=== PATIENT | female | born 1970 | race Caucasian/White ===

== ENCOUNTER → 2024-04-24 16:43 | Outpatient (REF) | payer OTHER, SELFPAY | LOC: WDC 16:43 | PROVIDERS: ATTENDING PHYSICIAN Obstetrics & Gynecology; FAMILY PHYSICIAN Physician Assistant Medical | DX: Z12.31 Encounter for screening mammogram for malignant neoplasm of breast (principal) | CPT/HCPCS: 77063; 77067 ==

== ENCOUNTER 2025-03-17 16:45 | Inpatient (IN) | payer OTHER, SELFPAY ==
[2025-03-17] VITALS (20 sets, daily range): BP systolic 83–137; BP diastolic 49–88; BMI 33.5; BMI 33.7
[2025-03-17 12:59] LABS: Hematocrit 40.5 % (37.0-47.0); Hemoglobin 13.7 g/dL (12.0-16.0); Mean Corp Hgb Conc. 33.8 g/dL (33.0-37.0); Mean Corpuscular Volume 89.6 fL (81.0-99.0); Nucleated Red Blood Cells % 0 %; Platelet Count 247 10^3/uL (130-400); Red Cell Dist. Width 13.1 % (11.5-14.5)
[2025-03-17 13:13] LABS: ALT (SGPT) 40 U/L (0-35); AST (SGOT) 28 U/L (14-36); Albumin 4.9 g/dl (3.5-5.0); Alkaline Phosphatase 57 U/L (38-126); Blood Urea Nitrogen 16 mg/dl (7-17); Calcium 10.3 mg/dl (8.4-10.2); Carbon Dioxide 24 mmol/L (22-30); Chloride 108 mmol/L (98-107); Estimated Creatinine Clearance > 125 ml/min; Glucose 107 mg/dl (70-99); Magnesium 2.0 mg/dl (1.6-2.3); Potassium 4.1 mmol/L (3.5-5.1); Sodium 141 mmol/L (135-145); Total Protein 7.8 g/dl (6.3-8.2); eGFR > 60.00
--- NOTE | 2025-03-17 13:17 | ED.GENMED ---
History of Present Illness
<Madison Arteaga BUSINESS INTEGRATION MANAGER - Last Filed: 03/17/25 20:07>
General
Chief Complaint: Heart Rate Problem
Source: patient
Exam Limitations: none
Time Seen by Provider: 03/17/25 13:17
Nursing documentation reviewed up to this point in time: agreed with
History of Present Illness
History of Present Illness:
54-year-old female with history of HTN, PCOS, anxiety, takes a GLP-1 for the last year and a half, presents for palpitations and chest tightness for about an hour and a half. She states she was sitting watching TV at 11:10 AM when all of a sudden
she felt palpitations and chest pressure. She denies weakness, dizziness or lightheadedness. Denies N/V. Patient took lorazepam 0.5 mg shortly after symptoms occurred as she thought she was having an anxiety attack
Past History
<Madison Arteaga, BUSINESS INTEGRATION MANAGER - Last Filed: 03/17/25 20:07>
Past History
ED Past Medical History: HTN, Psychiatric (Anxiety) and Other (PCOS)
ED Past Surgical History: None
Social History
Tobacco: Former smoker
Alcohol: Occasional
Personal:
Living: with family
Employment: Employed
Review of Systems
<Madison Arteaga, BUSINESS INTEGRATION MANAGER - Last Filed: 03/17/25 20:07>
Review of Systems
Allergies reviewed?: Yes
All Other Systems: ROS reviewed and negative except as documented in HPI and ROS
Phy Exam
<Madison Arteaga, BUSINESS INTEGRATION MANAGER - Last Filed: 03/17/25 20:07>
Physical Exam
Physical Exam:
GENERAL: No acute distress. A&Ox3.
CONSTITUTIONAL: Afebrile.
EYES: clear, conjunctivae normal
ENMT: moist mucus membranes, Pharynx nl
RESPIRATORY: Regular respirations, nonlabored, lungs clear.
CARDIOVASCULAR: Irregular rhythm, rate 109-140 on bedside monitor atrial fibrillation. no murmurs, no rubs.
GI: Soft, nontender, normal BS
MUSCULOSKELETAL: Moves with ease. Well perfused.
SKIN: Warm, dry, pink
PSYCH: Normal mood and affect. Well kept, interactive and appropriate
NEUROLOGIC: Awake, alert and oriented. No focal neurological deficits
Scores
<Madison Arteaga BUSINESS INTEGRATION MANAGER - Last Filed: 03/17/25 20:07>
[id number] Score for Afib Stroke Risk
Age in Years (65=0, 65-74=1, >/=75=2): <65
Sex (Female=+1): Female
Congestive Heart Failure History (Yes=+1): No
Hypertension History (Yes=+1): Yes
Stroke/TIA/Thromboembolism History (Yes=+2): No
Vascular Disease History (Yes=+1): No
Diabetes Mellitus (Yes=+1): No
Score: 2
Anticoagulation Recommendations: Recommend anticoagulation (as validated in nonvalvular fib)
<Elisa Espinoza DO - Last Filed: 03/17/25 15:08>
[id number] Score for Afib Stroke Risk
Score: 2
Anticoagulation Recommendations: Recommend anticoagulation (as validated in nonvalvular fib)
Course
<Madison Arteaga, BUSINESS INTEGRATION MANAGER - Last Filed: 03/17/25 20:07>
Orders/Labs/Results
Orders:
Orders
03/17/25 Breakfast
Regular
At Your Request: Full Participation
03/17/25 11:56
Electrocardiogram (*1) Urgent
Reason for Study: Chest Pain
EKG- Treatment ONCE
03/17/25 12:49
Complete Blood Count/With Diff Urgent
Comprehensive Metabolic Panel Urgent
Magnesium Urgent
Comment: ADD ON
TSH Reflex To Free T4 Urgent
Troponin I Urgent
03/17/25 14:13
Diltiazem 125 mg/125 ml Nss [Cardizem] 125 mg in 125 ml IV NOW
Initial dose in mg/hr, then titrate:: 5
Titrate to keep:: Heart rate 80-100 bpm
Titrate by mg/hr:: 5 mg/hr
Frequency of titrations (minutes):: 15
Maximum dose in mg/hr:: 15
Diltiazem HCl [Cardizem] 10 mg IV NOW STA
03/17/25 14:14
Diltiazem 125 mg/125 ml Nss [Cardizem] 125 mg in 125 ml .ROUTE .STK-MED
03/17/25 14:19
Apixaban [Eliquis] 5 mg PO NOW STA
03/17/25 14:49
0.9% Sodium Chloride 1000 ml [Nss] 1,000 ml IV BOLUS
03/17/25 16:19
Admit/Transfer Patient As Directed
Co-Sign Provider:
Level of Care: Inpatient admission
Assign to:: IVU
Physician / Group: Meir
Diagnosis: A-Fib
Reason for Hospitalization: Cardizem drip
Expected length of stay greater than two midnights?: Yes
ELOS- Estimated Length of Stay in days: 3
I certify the patient meets the requirements for IP care: Yes
03/17/25 16:20
PRN Pain Medication Management As Directed
May give lesser potent ordered pain med per pt: Yes
preference::
Protocol:: Medication orders for pain may be administered in a
manner that supports deferring to patient preference
when the pt is:
- Requesting an ordered lesser potent pain medication.
Least to most potent pain medications are defined
as: acetaminophen < NSAID < tramadol < opioids
(morphine, oxycodone, hydromorphone).
- Requesting a lesser dose of the same medication IF
ORDERED.
- Requesting a less intrusive route of administration
if both routes are prescribed by the provider (PO <
IV).
03/17/25 16:21
Code Status As Directed
Resuscitation Status: Full Code
03/17/25 17:40
Diltiazem 125 mg/125 ml Nss [Cardizem] 125 mg in 125 ml IV PER PROTOCOL
Currently infusing. Continue current dose and titrate:: Yes
Titrate to keep:: Heart rate 80-100 bpm
Titrate by mg/hr:: 2.5 mg/hr
Frequency of titrations (minutes):: 15
Maximum dose in mg/hr:: 15
03/17/25 18:21
Acetaminophen [Tylenol] 650 mg PO Q4HPRN PRN
03/17/25 18:21
Echo 2D MMode Color/Doppler Routine
Reason for Study: new a-fib
Cardiology Consult: Matthew Wilcox
CARDIOLOGY CONSULT Routine
Consulting Provider: Lionel Wilcox
Was physician already notified: Yes
Activity As Directed
Activity Level: Out of Bed-Early Mobility
With Assistance
Vital Signs As Directed
Frequency: Per unit guidelines
Cpap [RESP] Routine
Patient to use own unit?: Yes
03/17/25 20:00
Apixaban [Eliquis] 5 mg PO BID
03/18/25 06:00
Basic Metabolic Panel IN AM
Complete Blood Count/No Diff IN AM
Abnormal Lab Results
03/17/25
12:49
Chloride 108 H mmol/L
(98-107)
Glucose 107 H mg/dl
(70-99)
Calcium 10.3 H mg/dl
(8.4-10.2)
ALT 40 H U/L
(0-35)
03/17/25 12:49
03/17/25 12:49
Vital Signs
Initial and Last Documented VS:
Initial Vital Signs
Temp Pulse Resp BP Pulse Ox
97.7 F 110 16 137/87 100
03/17/25 11:58 03/17/25 11:58 03/17/25 11:58 03/17/25 11:58 03/17/25 11:58
Last Documented Vital Signs
Temp Pulse Resp BP Pulse Ox
98.5 F 97 16 107/53 96
03/17/25 20:04 03/17/25 18:25 03/17/25 20:04 03/17/25 18:25 03/17/25 20:04
Snuff Container Inspector consulted with Physician
Snuff Container Inspector consulted with physician?: Yes
Name of Physician Consulted: Olga
<Elisa Espinoza, DO - Last Filed: 03/17/25 15:08>
Orders/Labs/Results
Orders:
Orders
03/17/25 Breakfast
Regular
At Your Request: Full Participation
03/17/25 11:56
Electrocardiogram (*1) Urgent
Reason for Study: Chest Pain
EKG- Treatment ONCE
03/17/25 12:49
Complete Blood Count/With Diff Urgent
Comprehensive Metabolic Panel Urgent
Magnesium Urgent
Comment: ADD ON
TSH Reflex To Free T4 Urgent
Troponin I Urgent
03/17/25 14:13
Diltiazem 125 mg/125 ml Nss [Cardizem] 125 mg in 125 ml IV NOW
Initial dose in mg/hr, then titrate:: 5
Titrate to keep:: Heart rate 80-100 bpm
Titrate by mg/hr:: 5 mg/hr
Frequency of titrations (minutes):: 15
Maximum dose in mg/hr:: 15
Diltiazem HCl [Cardizem] 10 mg IV NOW STA
03/17/25 14:14
Diltiazem 125 mg/125 ml Nss [Cardizem] 125 mg in 125 ml .ROUTE .STK-MED
03/17/25 14:19
Apixaban [Eliquis] 5 mg PO NOW STA
03/17/25 14:49
0.9% Sodium Chloride 1000 ml [Nss] 1,000 ml IV BOLUS
03/17/25 16:19
Admit/Transfer Patient As Directed
Co-Sign Provider:
Level of Care: Inpatient admission
Assign to:: IVU
Physician / Group: Meir
Diagnosis: A-Fib
Reason for Hospitalization: Cardizem drip
Expected length of stay greater than two midnights?: Yes
ELOS- Estimated Length of Stay in days: 3
I certify the patient meets the requirements for IP care: Yes
03/17/25 16:20
PRN Pain Medication Management As Directed
May give lesser potent ordered pain med per pt: Yes
preference::
Protocol:: Medication orders for pain may be administered in a
manner that supports deferring to patient preference
when the pt is:
- Requesting an ordered lesser potent pain medication.
Least to most potent pain medications are defined
as: acetaminophen < NSAID < tramadol < opioids
(morphine, oxycodone, hydromorphone).
- Requesting a lesser dose of the same medication IF
ORDERED.
- Requesting a less intrusive route of administration
if both routes are prescribed by the provider (PO <
IV).
03/17/25 16:21
Code Status As Directed
Resuscitation Status: Full Code
03/17/25 17:40
Diltiazem 125 mg/125 ml Nss [Cardizem] 125 mg in 125 ml IV PER PROTOCOL
Currently infusing. Continue current dose and titrate:: Yes
Titrate to keep:: Heart rate 80-100 bpm
Titrate by mg/hr:: 2.5 mg/hr
Frequency of titrations (minutes):: 15
Maximum dose in mg/hr:: 15
03/17/25 18:21
Acetaminophen [Tylenol] 650 mg PO Q4HPRN PRN
03/17/25 18:21
Echo 2D MMode Color/Doppler Routine
Reason for Study: new a-fib
Cardiology Consult: Matthew Wilcox
CARDIOLOGY CONSULT Routine
Consulting Provider: Lionel Wilcox
Was physician already notified: Yes
Activity As Directed
Activity Level: Out of Bed-Early Mobility
With Assistance
Vital Signs As Directed
Frequency: Per unit guidelines
Cpap [RESP] Routine
Patient to use own unit?: Yes
03/17/25 20:00
Apixaban [Eliquis] 5 mg PO BID
03/18/25 06:00
Basic Metabolic Panel IN AM
Complete Blood Count/No Diff IN AM
Abnormal Lab Results
03/17/25
12:49
Chloride 108 H mmol/L
(98-107)
Glucose 107 H mg/dl
(70-99)
Calcium 10.3 H mg/dl
(8.4-10.2)
ALT 40 H U/L
(0-35)
03/17/25 12:49
03/17/25 12:49
Vital Signs
Initial and Last Documented VS:
Initial Vital Signs
Temp Pulse Resp BP Pulse Ox
97.7 F 110 16 137/87 100
03/17/25 11:58 03/17/25 11:58 03/17/25 11:58 03/17/25 11:58 03/17/25 11:58
Last Documented Vital Signs
Temp Pulse Resp BP Pulse Ox
98.5 F 97 16 107/53 96
03/17/25 20:04 03/17/25 18:25 03/17/25 20:04 03/17/25 18:25 03/17/25 20:04
<Madison Arteaga BUSINESS INTEGRATION MANAGER - Last Filed: 03/17/25 20:07>
MDM/Problems Addressed
MDM/Problems Addressed:
54-year-old female with history of HTN, PCOS, anxiety, takes a GLP-1 for the last year and a half, presents for palpitations and chest tightness for about an hour and a half. She states she was sitting watching TV at 11:10 AM when all of a sudden
she felt palpitations and chest pressure. She denies weakness, dizziness or lightheadedness. Denies N/V. Patient took lorazepam 0.5 mg shortly after symptoms occurred as she thought she was having an anxiety attack
1:45 PM:
EKG: A-fib with RVR heart rate 121 in triage, now on bedside monitor heart rate is 120s to 140, patient feels palpitations
Chads Vasc score 2 recommend anticoagulation
CBC, CMP unremarkable
TSH:WNL
Case discussed with Dr. Espinoza
Consulted Dr. Wilcox, Cardiology: Will attempt rate control w Cardizem drip, anticoagulation, consider DC on po Cardizem and anticoagulation vs admission
Pt agreeable to this plan.
4:00 PM:
Into reevaluate patient. She states she still feels the palpitations and is not comfortable going home
Plan: Admit to hospitalist
Hospitalist notified of admission
Chronic conditions affecting care: HTN
<Madison Arteaga BUSINESS INTEGRATION MANAGER - Last Filed: 03/17/25 20:07>
*Pulse Oximetry
SaO2: 99
Oxygen Mode of Delivery: Room air
Patient hypoxic: no
*Critical Care Note
Total Time (30-74mins, 75-104mins- exclusive of procedures): Not Applicable
ED Attending Note
<Madison Arteaga, BUSINESS INTEGRATION MANAGER - Last Filed: 03/17/25 20:07>
-
Portions of this chart may have been created with voice recognition software.� Occasional wrong word or��sound alike� substitutions may have occurred due to the inherent limitations of voice recognition software.
<Elisa Espinoza DO - Last Filed: 03/17/25 15:08>
ED Attending Note
Patient seen and examined by attending physician: Yes
I performed the substantive portion of visit, reviewed & personally made and approve the management plan that is documented in note by myself or ANTOINE.: Yes
I performed a history and physical exam of patient and discussed management with resident, I reviewed resident's note and agree with documented findings and plan of care.: Yes
ED Attending Note:
54-year-old female with history of hypertension presenting to the emergency department for palpitations and chest tightness which started prior to arrival. Patient notes that they started while she was watching TV. Denies ever having the symptoms
in the past. She took a lorazepam after symptom onset without any improvement of symptoms. Denies any known cardiac history. Denies any present chest pain. Denies any fever or recent illness. Vital signs on arrival significant for tachycardia.
On exam patient is resting comfortably, no acute distress. EKG obtained on arrival, consistent with A-fib with RVR, new onset with no prior history. Suspect etiology of patient's symptoms. Plan for laboratory analysis and Cardizem with plan for
discussion with cardiology regarding cardioversion versus medical management.
15:00 - In discussion with cardiology, option of both medical manage Cardizem and Eliquis given [id number] score versus cardioversion. Patient for medical therapy with continued Cardizem. If patient does not convert on Cardizem drip, continue
management monitoring
Discharge Plan
Departure
Patient Disposition: Admit
Date of Disposition: 03/17/25
Time of Disposition: 16:02
Admit to: Telemetry
Presentation/result/management discussed w/ accepting MD/DO: Hospitalist
Condition: Fair
Discharge Problem:
Atrial fibrillation, new onset, Atrial fibrillation with rapid ventricular response
Interventions
Interventions:
*Risk Screen - Suicide Last Done: 03/17/25 12:01
*General Assessment Last Done: 03/17/25 12:52
*Neglect/Abuse Screening Last Done: 03/17/25 12:01
*ED- Fall Risk Assessment Last Done: 03/17/25 12:52
*ED COVID-19 Vaccine History Last Done: 03/17/25 12:52
*Nursing Disposition Last Done: 03/17/25 18:28
ED- Cardiac Assessment Last Done: 03/17/25 12:54
ED- Pulmonary Assessment Last Done: 03/17/25 12:54
Discharge Date and Time
Discharge Date/Time: 03/17/25 18:29
[2025-03-17 13:50] LABS: Troponin I < 0.012 ng/ml
[2025-03-17] MEDS: NSS 1000 IV (14:00)
[2025-03-17] MEDS: CARDIZEM 125 IV (14:20)
[2025-03-17] MEDS: CARDIZEM 10 MG IV (14:20)
[2025-03-17] MEDS: ELIQUIS 5 MG PO ×2 (14:52→20:06)
--- NOTE | 2025-03-17 16:23 | HPS.HSE ---
Addendum entered and electronically signed by Sheron Worley MD 03/17/25 17:28:
This is an addendum to H&P written by Gillian Ku on 03/17/2025. �Patient seen and examined independently with PA.
54-year-old female past medical history of hypertension, polycystic ovarian syndrome, anxiety, obstructive sleep apnea, migraines, obesity, presenting with palpitations and chest pressure starting today. �Denies nausea or vomiting. �Denies
lightheadedness. �She took Ativan as she thought she was having an anxiety attack.
Vital signs show heart rate up to 132.
Labs unremarkable. �EKG shows atrial fibrillation with RVR.
Patient with new onset atrial fibrillation with RVR. �IV fluids given. �Cardizem drip started. �Eliquis started. �Check echo, TSH. �Cardiology consulted.
Original Note:
Family Physician
-
Family Physician: Linda Vee
Chief Complaint
-
Palpitations
History of Present Illness
Patient is a 54 y/o female past medical history of hypertension, anxiety, migraine headaches, PCOS, obstructive sleep apnea, and obestiy who presents with palpitations. Patient reports onset of symtpoms at 11:10 this morning. She describes heart
beating very quickly and felt like it was pounding in her chest. She reports some dizziness, but deneis chest pain. She denies lower extremitty edema. She denies similar episodes in the past.
Medical History
Past Medical History
Past Medical History: Reports Other
Additional Past Medical History:
Essential Hypertension
Migraine Headaches
Generalized Anxiety Disorder
PCOS
Obstructive Sleep Apnea
Obesity due to Excess Calories
Past Surgical History: Reports Other
Additional Past Surgical History:
Section
Carpal Tunnel
Social History
Tobacco: Former Smoker
Alcohol: Occasional (About 4 times per week)
Family History
Family History: Other (Denies family history of cardiac disease)
Allergies / Home Medications
Allergies reflects when Allergies were last updated in [employer].
Home Medications with original date entered in [employer]
Allergy/Medication List:
Allergies
Allergy/AdvReac Type Severity Reaction Status Date / Time
NKA - No Known Allergies Allergy Severe NKDA Uncoded 03/17/25 12:47
Home Medications
acebutolol 200 mg capsule 200 mg PO BID 03/17/25
cholecalciferol (vitamin D3) 25 mcg (1,000 unit) tablet 25 mcg PO DAILY 03/17/25
famotidine 20 mg tablet (Pepcid) 20 mg PO DAILYPRN PRN heartburn 03/17/25
magnesium carb,citrate,oxide (Magnesium Complex) 300 mg PO DAILY 03/17/25
omega 4-khw-tnp-fish oil 1,000 mg (120 mg-180 mg) capsule (Fish Oil) 1 cap PO DAILY 03/17/25
rizatriptan 10 mg tablet 10 mg PO DAILYPRN PRN migraine 03/17/25
therapeutic multivitamin 1 tab PO DAILY 03/17/25
vitamin B complex 1 tab PO DAILY 03/17/25
Review of Systems
-
A 12 point ROS was completed and negative except as noted: Yes
Constitutional: Denies Fever
Respiratory: Denies Trouble Breathing
Cardiac: Reports See HPI
Physical Exam
Vital Signs
Vital Signs
Temp Pulse Resp BP Pulse Ox
97.7 F 102 16 90/63 99
03/17/25 11:58 03/17/25 16:00 03/17/25 16:00 03/17/25 15:00 03/17/25 15:15
Physical Exam
General: Comfortable and Conversant
HEENT: Anicteric and Moist mucous membranes
Respiratory: Clear and Non Labored Respirations
Cardiac: S1/S2, Irregular Rhythm and Tachycardia
GI: Soft and Non Tender
Rectal: Deferred by Provider
Musculoskeletal: No Clubbing and No Cyanosis
Skin: Warm and Dry
Neuro: Awake, Alert, Oriented and Nonfocal/grossly intact
Psych: Calm
Laboratory Results
-
03/17/25 12:49
03/17/25 12:49
Laboratory Results
Total Bilirubin 0.6 mg/dl (0.2-1.3) 03/17/25 12:49
AST 28 U/L (14-36) 03/17/25 12:49
ALT 40 U/L (0-35) H 03/17/25 12:49
Alkaline Phosphatase 57 U/L (38-126) 03/17/25 12:49
Troponin I < 0.012 ng/ml 03/17/25 12:49
Data Reviewed
-
Lab Data: Labs Reviewed by me
Impression/Plan
-
New Onset Atrial Fibrillation with Rapid Ventricular Response
-Admit to IVU
-Consult Cardiology
-Continue Cardizem drip
-Continue Eliquis
-Check Echo
Essential Hypertension
-Continue acebutolol
Obstructive Sleep Apnea
-Continue CPAP - Patient's will bring from home
DVT proph: Eliquis
Code Status: Full Code
--- NOTE | 2025-03-17 17:24 | PTCARENOTE ---
Pt's BP 83/61 with HR in the 90's. Pt's Cardizem is currently at 10mg/hr. Per Hospitalist decrease Cardizem to 7.5mg/hr. RN encouraged po intake with fluids. Will update IVU and continue to monitor.
[2025-03-17] MEDS: TYLENOL 650 MG PO (23:01)
--- NOTE | 2025-03-17 23:45 | PTCARENOTE ---
Received pt at change of shift resting in bed. pt ambulating in room as katarina. A-fib on tele, HR 80's-90's. pt denies any CP or SOB. Cardizem gtt infusing @ 7.5 mg/hr. SBP 92. Anya Meier, CHIEF TELEPHONE OPERATOR made aware, instructed RN ok to decrease to as low as
2.5 if needed. Cardizem gtt decreased to 5mg/hr, SBP's 95-100's. A-fib education book given to pt. pt requesting PRN Tylenol for headache--see MAR. Encouraged pt to call RN with any questions/concerns. pt verbalizes understanding. Call layne within
reach.
[2025-03-18] VITALS (29 sets, daily range): BP systolic 81–135; BP diastolic 63–91
--- NOTE | 2025-03-18 01:00 | PTCARENOTE ---
BP 87/73, HR 80's-90's. Anya Meier NP made aware. Instructed RN to turn Cardizem infusion off and ordered NSS bolus. Administered per order. pt c/o migraine, PROJECT INSPECTOR ordered Rizatriptan, administered per pt request.
[2025-03-18] MEDS: NSS 250 IV (01:01)
[2025-03-18] MEDS: MAXALT MLT (ORALLY DISINTEGRATING) 10 MG PO (01:42)
[2025-03-18 03:09] LABS: Hematocrit 37.0 % (37.0-47.0); Hemoglobin 12.4 g/dL (12.0-16.0); Mean Corp Hgb Conc. 33.5 g/dL (33.0-37.0); Mean Corpuscular Volume 91.4 fL (81.0-99.0); Platelet Count 209 10^3/uL (130-400); Red Cell Dist. Width 13.3 % (11.5-14.5)
[2025-03-18 03:32] LABS: Blood Urea Nitrogen 14 mg/dl (7-17); Calcium 9.6 mg/dl (8.4-10.2); Carbon Dioxide 24 mmol/L (22-30); Chloride 111 mmol/L (98-107); Estimated Creatinine Clearance > 125 ml/min; Glucose 107 mg/dl (70-99); Potassium 4.2 mmol/L (3.5-5.1); Sodium 141 mmol/L (135-145); eGFR > 60.00
--- NOTE | 2025-03-18 04:09 | W.PN.UPDATE ---
Update Note
Progress Note Update
Pt arrived to IVU on Cardizem gtt. Since being on gtt pt bp steadily declining. Cardizem gtt placed on hold when sbp down to 88. Nss bolus ordered. [id number]
[2025-03-18] MEDS: NSS 1000 IV ×2 (05:47→16:58)
--- NOTE | 2025-03-18 07:39 | CON.CAR ---
Addendum entered and electronically signed by Vinny Wills MD 03/18/25 09:56:
I saw and examined the patient.
The IT PROGRAMMER ANALYST's note was reviewed and I agree with the note.
Comment:
54-year-old female with past medical history of hypertension, obesity, GIOVANNI on CPAP, and alcohol use who presents with new onset atrial fibrillation. She reports that she was sitting on her couch watching TV yesterday around 11 AM when she thought
she was having a panic attack. [place] her heart racing. Checked her Fitbit which showed a heart rate in the 150s and she presented to the ER. I personally reviewed ECG from the ER which showed A-fib with RVR. She was started on IV diltiazem and
heart rates have been ranging from the 100s up to 140s with minimal activity. Uptitration of diltiazem has been limited by hypotension.
Physical exam notable for fast and irregular rhythm, no murmurs, clear lungs, and no lower extremity edema
We will plan for synchronized cardioversion for her new onset atrial fibrillation. She is certain about the time of onset (11 AM yesterday), and since it has been less than 48 hours duration she does not need TRAVON prior. [id number] 2 (female,
hypertension). She will need apixaban 5 mg twice daily for at least 30 days following cardioversion. We discussed lifestyle modifications including alcohol cessation, weight loss, and CPAP compliance. She verbalized understanding. We will switch
her acebutolol to metoprolol. Follow-up echocardiogram. We will schedule her for follow-up in our office.
Original Note:
Consultation
Consultation Request
Date/Time Consultation Requested: 03/17/2025 18:20
Date/Time Consultation Performed: 03/18/2025 07:45
Requesting Provider: Gillian Bajwa PA-C
Performing Provider: KENNA Garrett for Dr. Wilcox
Reason for Consultation: Atrial fibrillaiton with RVR
Medical History
-
Chief Complaint: Palpitations
History of Present Illness:
Maribel Do is a 54-year-old female with hypertension, hypertriglyceridemia, NAFLD, PCOS, and GIOVANNI on CPAP who presented to the emergency department with a chief complaint of palpitations. There was a sudden onset at approximately 11:10 AM on
03/17/2025. Her heart felt like it was pounding quickly in her chest. She had some associated dizziness. She thought she was having a panic attack and took lorazepam without relief. She presented to the emergency department was found to have
atrial fibrillation with rapid ventricular response. She denies chest pain, nausea, and syncope/presyncope.
Past Medical History
Past Medical History: HTN and Other (Hypertriglyceridemia, NAFL, GIOVANNI on CPAP, PCOS)
Past Surgical History:
Social History
Tobacco: Non-Smoker
Alcohol: Occasional
Drug: None
Personal:
Living: With Family
Employment: Employed
Family History
Family History: Reviewed & Not Pertinent (Denies premature CAD and SCD.)
Allergies / Home Medications
Allergy/AdvReac Type Severity Reaction Status Date / Time
NKA - No Known Allergies Allergy Severe NKDA Uncoded 03/17/25 12:47
�Medication �Instructions �Recorded �Confirmed �Type
acebutolol 200 mg capsule 200 mg PO BID 03/17/25 03/17/25 History
cholecalciferol (vitamin D3) 25 25 mcg PO DAILY 03/17/25 03/17/25 History
mcg (1,000 unit) tablet
famotidine 20 mg tablet (Pepcid) 20 mg PO DAILYPRN PRN heartburn 03/17/25 03/17/25 History
magnesium carb,citrate,oxide 300 mg PO DAILY 03/17/25 03/17/25 History
(Magnesium Complex)
omega 5-dvu-oev-fish oil 1,000 mg 1 cap PO DAILY 03/17/25 03/17/25 History
(120 mg-180 mg) capsule (Fish Oil)
rizatriptan 10 mg tablet 10 mg PO DAILYPRN PRN migraine 03/17/25 03/17/25 History
therapeutic multivitamin 1 tab PO DAILY 03/17/25 03/17/25 History
vitamin B complex 1 tab PO DAILY 03/17/25 03/17/25 History
Review of Systems
-
History Source: Patient
All other systems: Negative unless noted
Constitutional: Fatigue
EENT: No Symptoms
Respiratory: No Symptoms
Cardiac: Palpitations
Abdomen/GI: No Symptoms
: No Symptoms
Musculoskeletal: No Symptoms
Skin: No Symptoms
Neurological: No Symptoms
Endocrine: No Symptoms
Hematologic/Lymphatic: No Symptoms
Physical Exam
Vital Signs
Temp Pulse Resp BP Pulse Ox
97.8 F 124 16 106/76 96
03/18/25 02:30 03/18/25 07:00 03/18/25 02:30 03/18/25 07:00 03/18/25 02:30
Lab Results
03/18/25 02:40
03/18/25 02:40
Troponin I < 0.012 ng/ml 03/17/25 12:49
Physical Exam
General: Well Developed, Well Nourished, No Apparent Distress and Comfortable
HEENT: Normocephalic, Anicteric and Moist Mucous Membranes
Respiratory: Clear and Non Labored Respirations
Cardiac: S1/S2 and Irregular Rhythm; Negative Peripheral Edema
Breast: Deferred by me
GI: Soft, Non Tender, Non Distended and Normal Bowel Sounds
Rectal: Deferred by Provider
Genito-urinary: No Costovertebral Tender
Musculoskeletal: No Clubbing and No Cyanosis
Skin: Warm and Dry
Neuro: AO x 3
Hematologic/Lymphatic: No Lymphadenopathy
Psych: Calm
Impression / Plan
-
I/P: 54F with hypertension, hypertriglyceridemia, NAFLD, PCOS, and GIOVANNI on CPAP who presented to the emergency department with a chief complaint of palpitations.
Radio Frequency Engineer: None prior to arrival
Atrial fibrillation with fast ventricular response
- Sudden onset at 11:10 AM yesterday
- BP did not tolerate diltiazem drip, plan for DCCV today
- Oral Anticoagulation: Started on apixaban 5 mg twice daily, the plan is for uninterrupted anticoagulation for 4 weeks post cardioversion
- [id number]: Score 2 (HTN, female gender)
HTN
-Has been maintained on acebutolol for ~25 years, BP soft with it on hold
Obesity, BMI 33, on GLP1, last dose 03/14/2025
GIOVANNI, on CPAP
Data Reviewed
-
EKG: Report Reviewed by me (Atrial fibrillation with RVR, iRBBB, rate 121)
Labs: Labs Reviewed by me
Old Records: Reviewed
--- NOTE | 2025-03-18 08:25 | W.PN.HOSP.TC ---
Today's Communication/Plan
-
Discharge today
Assessment / Plan
Assessment / Plan
Physical Exam
General: Comfortable and Conversant
HEENT: Anicteric and Moist mucous membranes
Respiratory: Clear to Auscultation Bilaterally
Cardiac: S1/S2, Irregular Rhythm and Tachycardia
GI: Soft and Non Tender. Positive bowel sounds.
Musculoskeletal: No Cyanosis. No edema.
Skin: Warm and Dry
Neuro: Awake, Alert, Oriented and Nonfocal/grossly intact
Psych: Calm
Assessment/Plan
54-year-old female with past medical history of hypertension, polycystic ovarian syndrome, anxiety, obstructive sleep apnea, migraines and obesity, presented with palpitations and chest pressure starting on 03/17/25 morning. She denied nausea,
vomiting or lightheadedness. She took Ativan as she thought she was having an anxiety attack. Vital signs showed heart rate up to 132 bpm. Labs were unremarkable. EKG showed atrial fibrillation with RVR. Patient with new onset atrial fibrillation
with RVR. IV fluids given. Cardizem drip started. Eliquis started.
New Onset Atrial Fibrillation with Rapid Ventricular Response
-Patient went for cardioversion, but spontaneously converted to Normal Sinus Rhythm as per my discussion with Dr. Wills, cardiology -- no cardioversion needed
-Uptitration of Diltiazem was limited by hypotension
-Cardiology consultation appreciated
-STOP home Acebutolol, and start Toprol XL 25 mg BID (I confirmed this with Dr. Wills)
-Continue Eliquis
Essential Hypertension
-STOP Acebutolol and START Toprol XL
Obstructive Sleep Apnea
-Continue CPAP
Polycystic ovarian syndrome
Anxiety
Migraines
Obesity
DVT Prophylaxis: Eliquis
Code Status: Full Code
More than 30 minutes spent in discharge including
Final examination of the patient
Summarizing hospital stay
Instructions for continuing care to all relevant caregivers
Preparation of discharge records, prescriptions, and referral forms
Total time spent (in minutes): 43
Anticipated Discharge: Today
Subjective/Interval History
-
Date of Service: March 18, 2025
Patient was seen and examined. She denied any chest pain or shortness of breath.
Objective Data
-
Labs:
Laboratory Results
03/18/25
02:40
WBC 7.8
Hgb 12.4
Hct 37.0
Plt Count 209
Sodium 141
Potassium 4.2
Chloride 111 H
Carbon Dioxide 24
BUN 14
Creatinine 0.6
Glucose 107 H
Calcium 9.6
Vital Signs:
Vital Signs
Temp Pulse Resp BP Pulse Ox
97.8 F 124 16 106/76 96
03/18/25 02:30 03/18/25 07:00 03/18/25 02:30 03/18/25 07:00 03/18/25 02:30
I&O
03/17/25 03/18/25 03/19/25
06:59 06:59 06:59
Intake Total 745 / 745
Balance 745 / 745
[2025-03-18] MEDS: ELIQUIS 5 MG PO ×2 (08:29→19:35)
--- NOTE | 2025-03-18 09:35 | PTCARENOTE ---
Patient resting in bed this morning, remains in AF with rates in the 120's at rest, does feel palpitations. Patient seen by cardiology and plan is for CV today, given AM dose of eliquis.
--- NOTE | 2025-03-18 09:42 | CM ---
Reviewed chart. Met with and Mrs. Do to review discharge plans. She states prior to admission she resides with her spouse and son in a two story home with three steps to enter. She states she has a first floor set-up. She states she has to
go down a full flight of steps to get to laundry room in the basement. She states prior to admission she was independent with ambulation and adls. She states she has a CPAP Machine at home and no other DME in the home. She state she has a
prescription plan and uses [facility]. Telephone call to [facility] to check on co-pay for Eliquis 5 mg po bid. Her co-pay would be $20.00 a month. She has commercial insurance so she can use the $10.00 co-pay coupon. Placed the one month free
coupon and the $10.00 co-pay coupon in her red discharge folder. She is agreeable to the co-pay. Medical work-up in progress. The discharge plan is to return home with her spouse and son when medically stable.
[2025-03-18 10:20] LABS: Glycohemoglobin (HgbA1c) 5.3 % (4.0-5.6)
--- NOTE | 2025-03-18 10:56 | PTCARENOTE ---
Report given to the recyclable materials sorter, patient for CV, waiting in the room.
--- NOTE | 2025-03-18 12:39 | PTCARENOTE ---
Patient returned from the trestle mainternance laborer, spontaneously cardioverted upon arrival in the EP lab before initiating any procedure. Returned to her room, ST on the the monitor, patient feels much better.
[2025-03-18] MEDS: TOPROL XL 25 MG PO (14:04)
--- NOTE | 2025-03-18 16:16 | W.PN.UPDATE ---
Addendum entered and electronically signed by Anselmo Ibanez MD 03/18/25 16:27:
I discussed with Dr. Wills, and I agreed with her that patient's symptoms below could be due to newly started Toprol XL. Much less likely to be an adverse effect of Eliquis. Will stop Toprol XL. Dr. Wills will put in Diltiazem.
Original Note:
Update Note
Progress Note Update
Patient's nurse notified me that patient has a temperature of 100.3 F and has the chills and appears flushed. She reported feeling tired and 'lousy.' Vital signs okay except for low grade fever and mild tachycardia. She denied any cough, SOB,
dysuria, urinary frequency, any joint pains or joint swelling, next stiffness, new skin rash, or any other symptoms.
Will check COVID and Flu.
Beta ana side effect? Will check with cardiology.
I spoke to patient and she us agreeable to being monitored here overnight, given the above.
[2025-03-18] MEDS: BENADRYL 25 MG IV (16:59)
[2025-03-18 17:05] LABS: COVID-19 Antigen Negative (Negative)
--- NOTE | 2025-03-18 18:31 | PTCARENOTE ---
After the patient's return from attempted CV the patient was asked to walk around and make sure she felt alright. Her only complaint at the time was feeling tired and that she was chilly but she was afebrile, received PO toprol xl as ordered. After
discharge written, found patient in bed in her room very flushed with the chills and stated she just felt 'tired and achy', was at the bedside. Lungs clear, denies any urinary issues. Dr. Vora notified, flu and covid swabs sent and
patient given IV benadryl and IVF restarted. Discharge cancelled.
[2025-03-18] MEDS: TYLENOL 650 MG PO (19:35)
[2025-03-18] MEDS: CARDIZEM CD 120 MG PO (22:47)
[2025-03-18 22:59] LABS: Hematocrit 36.7 % (37.0-47.0); Hemoglobin 12.4 g/dL (12.0-16.0); Mean Corp Hgb Conc. 33.8 g/dL (33.0-37.0); Mean Corpuscular Volume 90.0 fL (81.0-99.0); Nucleated Red Blood Cells % 0 %; Platelet Count 221 10^3/uL (130-400); Red Cell Dist. Width 13.3 % (11.5-14.5)
[2025-03-18 23:08] LABS: APTT 29.8 Sec (23.4-35.0)
[2025-03-18 23:13] LABS: Blood Urea Nitrogen 12 mg/dl (7-17); Calcium 9.2 mg/dl (8.4-10.2); Carbon Dioxide 20 mmol/L (22-30); Chloride 110 mmol/L (98-107); Estimated Creatinine Clearance 99 ml/min; Glucose 115 mg/dl (70-99); Potassium 4.0 mmol/L (3.5-5.1); Sodium 136 mmol/L (135-145); eGFR > 60.00
[2025-03-18 23:29] LABS: Procalcitonin < 0.05 ng/ml (0.0-0.25)
--- NOTE | 2025-03-18 23:35 | PTCARENOTE ---
Received patient at change of shift. ST on the monitor, HR in the 100s. NSS running as per order, see documentation. Oral temp of 101.9F, patient reports being 'freezing cold', PRN Tylenol administered as per order, see AUG. Temp now 100.5F, pt
reports feeling slightly better at this time. Pt with 3/10 headache, no other symptoms. Blood cultures obtained. Call layne within reach.
[2025-03-19] MEDS: TYLENOL 650 MG PO (00:03)
[2025-03-19 00:26] LABS: Urine Character Clear (Clear)
[2025-03-19 00:33] LABS: Urine Red Blood Cell 0-2 /HPF (0-2); Urine Squamous Cell 0-2 /LPF (Few); Urine White Cell 0-2 /HPF (0-5)
--- NOTE | 2025-03-19 00:45 | W.PN.UPDATE ---
Update Note
Progress Note Update
2129 Received an update on pt from attending Dr Ibanez regarding pt spiking temps. Earlier today it was 100.3 and discharge was cancelled. Now temp 101.3
Attending ordered blood culture x2. Unclear at the moment what is causing temps. Recommends cultures check ct chest for PE, US BLE for poss DVT and starting empiric abx.
Flu and covid negative
Discussed plans above with pt and she is in agreement. Denies respiratory symptoms (no cough/sob), denies urninary complaints. Denies abd complaints. Just feels very achy.
0000 CT chest without PE. US BLE negative DVT, normal wbc, procal negative, UA negative. Will start empiric abx overnight but likely will be stopped in am.
[2025-03-19] MEDS: ZOSYN 50 IV ×2 (02:41→08:35)
[2025-03-19 02:45] VITALS: BP 103/66
[2025-03-19 03:31] LABS: Hematocrit 36.7 % (37.0-47.0); Hemoglobin 12.1 g/dL (12.0-16.0); Mean Corp Hgb Conc. 33.0 g/dL (33.0-37.0); Mean Corpuscular Volume 91.5 fL (81.0-99.0); Nucleated Red Blood Cells % 0 %; Platelet Count 215 10^3/uL (130-400); Red Cell Dist. Width 13.2 % (11.5-14.5)
[2025-03-19 03:52] LABS: ALT (SGPT) 30 U/L (0-35); AST (SGOT) 20 U/L (14-36); Albumin 3.9 g/dl (3.5-5.0); Alkaline Phosphatase 43 U/L (38-126); Blood Urea Nitrogen 12 mg/dl (7-17); Calcium 9.1 mg/dl (8.4-10.2); Carbon Dioxide 20 mmol/L (22-30); Chloride 112 mmol/L (98-107); Estimated Creatinine Clearance 113 ml/min; Glucose 97 mg/dl (70-99); Magnesium 2.1 mg/dl (1.6-2.3); Potassium 3.9 mmol/L (3.5-5.1); Sodium 139 mmol/L (135-145); Total Protein 6.3 g/dl (6.3-8.2); eGFR > 60.00
[2025-03-19] MEDS: NSS 1000 IV (05:34)
[2025-03-19 07:15] VITALS: BP 104/74
[2025-03-19] MEDS: MAXALT MLT (ORALLY DISINTEGRATING) 10 MG PO (08:28)
[2025-03-19] MEDS: ELIQUIS 5 MG PO (08:28)
--- NOTE | 2025-03-19 09:03 | PTCARENOTE ---
Patient feels much better this morning, afebrile. Only complaint is of a headache and she requested her maxalt which was given. at the bedside, asking when she could get discharged. Informed that an ID consult has been ordered, the patient
did recall this being mentioned.
[2025-03-19] MEDS: LR 1000 IV (09:12)
--- NOTE | 2025-03-19 10:13 | W.PN.HOSP.TC ---
Today's Communication/Plan
-
Discharge today
Assessment / Plan
Assessment / Plan
Physical Exam
General: Comfortable and Conversant
HEENT: Anicteric and Moist mucous membranes
Respiratory: Clear to Auscultation Bilaterally
Cardiac: S1/S2, Irregular Rhythm and Tachycardia
GI: Soft and Non Tender. Positive bowel sounds.
Musculoskeletal: No Cyanosis. No edema.
Skin: Warm and Dry
Neuro: Awake, Alert, Oriented and Nonfocal/grossly intact
Psych: Calm
Assessment/Plan
54-year-old female with past medical history of hypertension, polycystic ovarian syndrome, anxiety, obstructive sleep apnea, migraines and obesity, presented with palpitations and chest pressure starting on 03/17/25 morning. She denied nausea,
vomiting or lightheadedness. She took Ativan as she thought she was having an anxiety attack. Vital signs showed heart rate up to 132 bpm. Labs were unremarkable. EKG showed atrial fibrillation with RVR. Patient with new onset atrial fibrillation
with RVR. IV fluids given. Cardizem drip started. Eliquis started.
New Onset Atrial Fibrillation with Rapid Ventricular Response
-Patient went for cardioversion, but spontaneously converted to Normal Sinus Rhythm as per my discussion with Dr. Wills, cardiology -- no cardioversion needed
-Uptitration of Diltiazem was limited by hypotension
-Cardiology consultation appreciated
-STOP home Acebutolol, and start new Diltiazem extended release. Suspected patient did not tolerate Toprol XL 25 mg with flushing reaction
-Continue Eliquis for 30 days, and then stop (needs uninterrupted anticoagulation for 4 weeks)
-Follow up with driftman Dr. Brannon in the outpatient cardiology office in one month.
-Weight loss, reduce alcohol intake, sleep apnea treatment, exercise
Fevers 03/18/25
-Unknown etiology, no source of infection
-Was given a short course of Zosyn, ID recommended stopping antibiotics and observe
-No PE or DVT
Essential Hypertension
-STOP Acebutolol and START Toprol XL
Obstructive Sleep Apnea
-Continue CPAP
Polycystic ovarian syndrome
Anxiety
Migraines
Obesity
DVT Prophylaxis: Eliquis
Code Status: Full Code
More than 30 minutes spent in discharge including
Final examination of the patient
Summarizing hospital stay
Instructions for continuing care to all relevant caregivers
Preparation of discharge records, prescriptions, and referral forms
Total time spent (in minutes): 43
Anticipated Discharge: Today
Subjective/Interval History
-
Date of Service: March 19, 2025
Patient was seen and examined. She reported feeling better today, no more fevers. She would like to go home today.
Objective Data
-
Labs:
Laboratory Results
03/18/25 03/19/25
22:46 02:51
WBC 6.6 6.2
Hgb 12.4 12.1
Hct 36.7 L 36.7 L
Plt Count 221 215
APTT 29.8
Sodium 136 139
Potassium 4.0 3.9
Chloride 110 H 112 H
Carbon Dioxide 20 L 20 L
BUN 12 12
Creatinine 0.8 0.7
Glucose 115 H 97
Calcium 9.2 9.1
Total Bilirubin 0.5
AST 20
ALT 30
Alkaline Phosphatase 43
Vital Signs:
Vital Signs
Temp Pulse Resp BP Pulse Ox
98.5 F 97 18 104/74 98
03/19/25 07:13 03/19/25 07:45 03/19/25 07:13 03/19/25 07:15 03/19/25 07:13
I&O
03/18/25 03/19/25 03/20/25
06:59 06:59 06:59
Intake Total 745 / 745 1220 / 1220
Output Total 700 / 700
Balance 745 / 742 1220 / 5410 -700 /
--- NOTE | 2025-03-19 10:51 | W.PN.CD ---
Today's Communication / Plan
-
OK for home on Eliquis for 30 days then stop (Dr. Brannon's plan that I agree with, I reviewed option for usp Eliquis as well)
Home on New DILT ER, adjusted over time for good BP control <130/<80
Will stay off acebutolol
Not sure fever was reaction to metoprolol but reasonable to avoid for now
She will work hard on AFib risk factor medication: for her MUCH LESS ETOH and much more EXERCISE. Sleep apnea under control. She has lost 30 pounds but will redouble efforts
If AFib proves probalematic she will strongly consider ablation
55 min spent caring for patient today. More than 50% of that was educating pt and about AFib and treatment plans and goals.
Impression / Plan
-
Background: 54F with hypertension, hypertriglyceridemia, NAFLD, PCOS, and GIOVANNI on CPAP who presented to the emergency department with a chief complaint of palpitations.
Cabana Attendant: None prior to arrival
New/first PAF with RVR
- I reviewed how AFib is a recurrent arrhythmia in most cases. I reviewed all aspects of AFib
- Broke to sinus yesterday
- Off BB and now on Dilt ER
- Oral Anticoagulation: Started on apixaban 5 mg twice daily, the plan is for uninterrupted anticoagulation for 4 weeks
- [id number]: Score 2 (HTN, female gender)
ETOH, heavy but not excessive, I reviewed ETOH guidelines for AFib
Sedentary: She will work on increased exercise
HTN
- Will move from acebutolol to dilt
Obesity, BMI 33, on GLP1, last dose 03/14/2025
GIOVANNI, on CPAP
Low grade fever, unknown etiology, ID to see
Subjective: No more AFIb
Echo and sinus EKG are both NORMAL.. TSH normal
Physical Exam
Vital Signs/Labs
Vital Signs
Temp Pulse Resp BP Pulse Ox
98.5 F 97 18 104/74 98
03/19/25 07:13 03/19/25 07:45 03/19/25 07:13 03/19/25 07:15 03/19/25 07:13
03/18/25 03/19/25 03/20/25
06:59 06:59 06:59
Actual Weight 100.5 kg
03/19/25 02:51
03/19/25 02:51
APTT 29.8 Sec (23.4-35.0) 03/18/25 22:46
Magnesium 2.1 mg/dl (1.6-2.3) 03/19/25 02:51
LAB Results
03/17/25
12:49
Troponin I < 0.012
Physical Exam
Constitutional: No acute distress
EENT: Anicteric
Cardiovascular: Rhythm & rate is regular and Pedal edema is absent
Respiratory: Respiratory effort normal and Lungs clear to auscul.
GI: Soft and Distention absent
Neuro/Psych: AO x 3
Data Reviewed
-
Date of Service: March 19, 2025
--- NOTE | 2025-03-19 12:09 | CON.ID ---
Consultation
-
Date/Time Consultation Requested: March 19, 2025 0811
Date/Time Consultation Performed: March 19, 2025 1210
Requesting Provider: Dr. Anselmo Ibanez
Performing Provider: Dr. Melina Joaquin
Reason for Consultation: Fever
Chief Complaint / Past History
Chief Complaint
Palpitations
History of Present Illness
54-year-old female with history of migraine headaches, hypertension who presented to the hospital on March 17 due to rapid heart rate. She reports that she was watching TV when she suddenly felt her heart racing. She had mild dizziness. No
shortness of breath. She thought it was anxiety but palpitations persisted and therefore she came to the hospital. Patient noted to be in A-fib with AVR. She was placed on Cardizem but her blood pressure decreased. Yesterday Cardizem replaced
with metoprolol succinate given around 1400. Yesterday she was to have cardioversion but patient spontaneously went into sinus rhythm and therefore procedure canceled. In the afternoon, she felt flushed and had chills. Her temperature was 100.3
at 6 PM. No focal symptoms. The metoprolol was discontinued for possible drug reaction. She was placed back on Cardizem. Last night she spiked temperature 101.9 then 100.5. Blood cultures obtained. CT of the chest no PE, no opacities. She
was started on empiric Zosyn. Today patient reports feeling fine. No sinus congestion, no sore throat. No headache currently. No cough or shortness of breath. No chest pain. No nausea, vomiting, abdominal pain, or diarrhea. No urinary
symptoms. No joint pains. No rash. No recent ill contacts. No travel.
Past History
Additional Past Medical History:
Hypertension
Migraine headaches
GIOVANNI on CPAP
PCOS
Anxiety
Additional Past Surgical History:
Carpal tunnel surgery
Allergy History:
NKA - No Known Allergies Allergy (Severe, Uncoded 03/17/25 12:47)
NKDA
Medications Reviewed: Yes
Current Antibiotics:
Zosyn
Social History
Tobacco: Former Smoker
Alcohol: Occasional
Personal:
Family History
Family History: Not Pertinent
Review of Systems
Review of Systems
General: Fever and Chills; Negative Change in Appetite
HEENT: Negative Sinus Problems, Headache or Pharyngitis
Cardiovascular: Negative Chest Pain or Dyspnea
Respiratory: Negative Dyspnea or Cough
Gasteroenterology: Negative Nausea, Vomiting or Diarrhea
Genital / Urological: Negative Dysuria, Hematuria or Flank Pain
Endocrine: Negative Weakness
Musculoskeletal: Negative Joint Swelling or Arthralgias
All systems: All other systems were reviewed and were negative
Vital Signs
Temp Pulse Resp BP Pulse Ox
98.5 F 97 18 104/74 98
03/19/25 07:13 03/19/25 07:45 03/19/25 07:13 03/19/25 07:15 03/19/25 07:13
Selected Entries
03/18/25
19:32 03/18/25
22:50
Temp 101.9 F H 100.5 F H
Physical Exam
Physical Exam
Constitutional: No Acute Distress, Comfortable and Non-toxic
Head: Other (No frontal or maxillary sinus tenderness.)
Eyes: No Conjunctival Hemorrhage and Sclera Anicteric
Cardiovascular: Regular Rate and S1/S2
Pulmonary: Clear; Negative Wheezes, Rales or Rhonchi
Gastrointestinal: Soft, Non Tender, Non Distended and Normal Bowel Sounds
Genito-Urinary: Negative Suprapubic Tenderness or CVA Tenderness
Extremities: Negative Edema or Erythema
Musculoskeletal: Negative Joint Swelling, Joint Effusion or Spinal Tenderness
Skin: Negative Rash
Neurological: AO x 3
Psychological: Calm
Lab / Diagnostic Study Results
03/19/25 02:51
03/19/25 02:51
Abs Immat Gran (auto) 0.0 10^3/uL (0-0.05) 03/19/25 02:51
Absolute Neuts (auto) 3.0 10^3/uL (1.4-6.5) 03/19/25 02:51
Absolute Lymphs (auto) 2.3 10^3/uL (1.2-3.4) 03/19/25 02:51
Absolute Monos (auto) 0.8 10^3/uL (0.1-0.6) H 03/19/25 02:51
Absolute Basos (auto) 0.1 10^3/uL (0-0.2) 03/19/25 02:51
Immature Gran % 0.2 % (0-0.5) 03/19/25 02:51
Neutrophils % 49.3 % (42.2-75.2) 03/19/25 02:51
Lymphocytes % 36.5 % (20.5-51.1) 03/19/25 02:51
Monocytes % 12.5 % (1.7-9.3) H 03/19/25 02:51
Eosinophils % 0.5 % (0-6) 03/19/25 02:51
Basophils % 1.0 % (0-2) 03/19/25 02:51
Procalcitonin < 0.05 ng/ml (0.0-0.25) 03/18/25 22:46
Ur Squamous Epith Cells 0-2 /LPF (Few) 03/18/25 23:57
Microbiology Results
Micro:
03/18/25 22:46 Blood Culture - Pending
Blood/Venous
03/18/25 21:42 Blood Culture - Pending
Blood/Venous
03/18/25 21:46 MRSA Screen - Pending
Nose
03/18/25 16:30 Influenza Types A & B (GARRETT) - Final
Nasal Swab Negative for Influenza A & B, NAAT
Negative results must be combined with clinical observations
and patient history.
Nucleic Acid Amplification test (NAAT)performed on the
[employer] ID NOW platform.
03/18/[address]: No evidence of pulmonary embolism. No significant abnormality identified in the chest, as described above.
Assessment / Plan
# Transient fever with facial flushing
# New onset afib/RVR spontaneously converted to NSR
-Unclear source of fever. Possibly from first dose metoprolol.
- Normal wbc.
- UA negative
- CT chest negative
- No focal signs and symptoms of infection
- blood cx x 2 pending
- DC zosyn and observe.
[2025-03-19 12:35] VITALS: BP 120/83
--- NOTE | 2025-03-19 14:34 | CM ---
Reviewed chart. Met with Mrs. Do to review discharge plans. She states she is feeling better and maybe able to go home soon. Prior to admission she resides with her spouse and son in a two story home with three steps to enter. She states she
has a first floor set-up. She has to go down a full flight of steps to get to laundry room in the basement. Prior to admission she was independent with ambulation and adls. She has a CPAP Machine at home and no other DME in the home. She has a
prescription plan and uses [facility]. Telephone call to [facility] to check on co-pay for Eliquis 5 mg po bid. Her co-pay would be $20.00 a month. She has commercial insurance so she can use the $10.00 co-pay coupon. Placed the one month free
coupon and the $10.00 co-pay coupon in her red discharge folder. She is agreeable to the co-pay. Medical work-up in progress. The discharge plan is to return home with her spouse and son when medically stable.
[2025-03-19 15:33] VITALS: BP 128/81
[2025-03-19] MEDS: ZOSYN IV (15:52)
--- NOTE | 2025-03-19 16:23 | W.DCSUMMARY ---
Discharge Summary
Discharge Data
Date of Admission: 03/17/25
Date of Discharge: 03/19/25
Total time spent discharging patient (in min): 43
-
Pending Results: Yes
Additional Pending Results:
Final results of blood cultures from hospitalization
Hospital Course
54-year-old female with past medical history of hypertension, polycystic ovarian syndrome, anxiety, obstructive sleep apnea, migraines and obesity, presented with palpitations and chest pressure. Patient was found to have new onset atrial
fibrillation with rapid ventricular response. Patient was given intravenous fluids, and Cardizem drip and Eliquis were started. Cardiology was consulted. Patient became hypotensive while on Cardizem Drip, therefore Cardizem drip was held, and
patient was given intravenous fluids. Patient was planned for synchronized cardioversion for her new onset atrial fibrillation, and she would need Apixaban 5 mg twice daily for at least 30 days following cardioversion. Patient went for
cardioversion, but spontaneously converted to Normal Sinus Rhythm, and therefore cardioversion was not needed. Patient's Acebutolol was switched to Metoprolol, but it was thought that she may have had a reaction to the Metoprolol, as she developed
flushing of her skin. Patient also developed chills and fever of unknown etiology after infectious work-up was done, patient also denied any symptoms specific to an infection. Patient was given a short course of Zosyn. COVID and Flu were negative.
Blood cultures were ordered and Infectious Disease was consulted. Due to fever of unknown etiology, CT Chest and lower extremity ultrasound were checked and were negative for any venous blood clots. Patient's fever resolved, she felt better, she
wanted to go home, and she was stable for discharge.
Discharge Plan
-
Patient Disposition: Home (Routine Discharge)
Discharge Diagnosis/Procedures: New-Onset Atrial Fibrillation with Rapid Ventricular Response
Fevers 03/18/25 -- resolved -- Metoprolol Intolerance?
Essential Hypertension
Obstructive Sleep Apnea
Polycystic ovarian syndrome
Anxiety
Migraines
Obesity
Condition: Good
Diet: Low Fat, Low Cholesterol and Low Sodium
Activity: As tolerated
Activity Restrictions/Additional Instructions:
If you develop new or worsening symptoms, please return right away to the emergency room.
Weight loss, reduce alcohol intake, sleep apnea treatment, exercise as discussed
Follow up with tool filer hand Dr. Brannon in the outpatient cardiology office in one month.
Instructions: Apixaban, Diltiazem
Referrals:
Nell Fisher CRNP [Specified Professional Personl, Cardiology] - 04/10/25 3:40 pm
Linda Vee PA-C [Family Provider, Family Practice] - in less than 1 week
Referral Note: Hospitalization Follow-Up (was hospitalized with new-onset Atrial Fibrillation with RVR)
Additional Discharge Medication Instructions: Please STOP taking your home Acebutolol.
Please START taking Eliquis -- continue Eliquis for 30 days, and then stop (patient needs uninterrupted anticoagulation for 4 weeks)
Please START taking Diltiazem.
Prescriptions:
New
diltiazem HCl 120 mg Capsule,Extended Release 24hr
120 mg PO HS Qty: 30 2RF
Eliquis 5 mg tablet
5 mg PO BID 30 Days Qty: 60 0RF
Continued
rizatriptan 10 mg tablet
10 mg PO DAILYPRN PRN (Reason: migraine)
therapeutic multivitamin Tablet
1 tab PO DAILY
famotidine [Pepcid] 20 mg Tablet
20 mg PO DAILYPRN PRN (Reason: heartburn)
vitamin B complex Tablet
1 tab PO DAILY
cholecalciferol (vitamin D3) 25 mcg (1,000 unit) Tablet
25 mcg PO DAILY
omega 1-tkt-tqd-fish oil [Fish Oil] 1,000 (120-180) mg Capsule
1 cap PO DAILY
Magnesium Complex 300 mg magnesium Tablet
300 mg PO DAILY
Discontinued
acebutolol 200 mg capsule
200 mg PO BID
Discharge Orders:
Discharge Patient (As Directed); Ordered 03/19/25
Ordered By: Anselmo Ibanez
Care Plan Goals
Care Plan Goals:
Problem: Readiness for enhanced knowledge related to diagnosis and treatment plan
Goal: Understand your diagnosis and treatment plan needs, including medications if applicable.
Instructions: Know your diagnosis, underlying causes and treatment plan options, including medications if applicable. Consult with your health care team to learn about your diagnosis and treatment plan, including medications if applicable.
Discharge Date and Time
Discharge Date/Time: 03/19/25 16:54
Print Language: COMORAN
--- NOTE | 2025-03-19 16:50 | PTCARENOTE ---
Patient is afebrile, feels much better. Seen by ID and is ok for discharge home. Reviewed medications and discharge instructions/follow up with the patient and she states her understanding. Patient discharged home with her .
== END 2025-03-19 16:54 | disposition home or self-care (01) | DRG 310 ==
LOC: IVU 16:45
PROVIDERS: Nurse Practitioner Family; Physician Assistant Medical; ADMITTING PHYSICIAN Hospitalist; ATTENDING PHYSICIAN Hospitalist; CONSULT PHYSICIAN Internal Medicine Infectious Disease; EMERGENCY PHYSICIAN Student in an Organized Health Care Education/Training Program; FAMILY PHYSICIAN Physician Assistant Medical; OTHER PHYSICIAN Student in an Organized Health Care Education/Training Program
PROC: 5A09357 Assistance with Respiratory Ventilation, Less than 24 Consecutive Hours, Continuous Positive Airway Pressure (ICD-10-PCS; 2025-03-17)
DX: I48.91 Unspecified atrial fibrillation (principal); I10 Essential (primary) hypertension; E28.2 Polycystic ovarian syndrome; F41.1 Generalized anxiety disorder; G47.33 Obstructive sleep apnea (adult) (pediatric); E78.1 Pure hyperglyceridemia; K76.0 Fatty (change of) liver, not elsewhere classified; I95.9 Hypotension, unspecified; G43.909 Migraine, unspecified, not intractable, without status migrainosus; E66.09 Other obesity due to excess calories; R50.9 Fever, unspecified; Z53.9 Procedure and treatment not carried out, unspecified reason; Z68.33 Body mass index [BMI] 33.0-33.9, adult; Z79.01 Long term (current) use of anticoagulants; Z87.891 Personal history of nicotine dependence; Z11.52 Encounter for screening for COVID-19
CPT/HCPCS: 71275; 80048; 80053; 81003; 81015; 83036; 83735; 84145; 84443; 84484; 85025; 85027; 85730; 87040; 87070; 87502; 87811; 93005; 93306; 93970; 96361; 96374; 96376; 99285; Q9967